=== PATIENT | female | born 1980 | race Caucasian/White ===

== ENCOUNTER → 2021-09-30 | Outpatient (CLI) | payer OTHER ==
--- NOTE | 2021-09-30 16:46 | P.SLEEP ---
History of Present Illness H&P Date: 09/30/21 Chief Complaint: hypersomnia This is a 41-year-old female patient who has been diagnosed with obstructive sleep apnea back in 2019 to the sleep center to [facility]. The patient failed to comply and the patient did not show adequate response and compliance and based on that she had to return her machine back. Over the past 3 years, conditions got worse. She is snoring and she has been noted with breathing at night and she is excessively tired and sleepy during the day. She is going to bed at around 9 PM waking of 5:30 AM in the morning. The patient has gained around 15 pounds over the past 1 year. She is off all sleep was driving. No restlessness lower extremity speech is sleeps on her stomach and the site. No nighttime chest pain or shortness of breath. She is occasionally grinding her teeth. Denies waking up choking or gasping for air. Note that her original polysomnogram was done at [facility] and she is not aware on the disease severity and she is also aware on the exact pressure setting that she was offered at the time of her treatment. She did not have a follow-up with a sleep physician. Review of Systems Constitutional: Reports daytime sleepiness, Reports fatigue, Reports weight gain Eyes: denies as per HPI, denies blurred vision, denies bulging eye, denies decreased vision, denies diplopia, denies discharge, denies dry eye, denies irritation, denies itching, denies pain, denies photophobia, denies loss of peripheral vision, denies loss of vision, denies tunnel vision/blind spots Ears: deny: decreased hearing, ear discharge, earache, tinnitus Ears, nose, mouth and throat: Reports as per HPI Breasts: absent: as per HPI, change in shape, gynecomastia, masses, nipple discharge, pain, skin changes, swelling Cardiovascular: Reports as per HPI Respiratory: Reports sleep apnea, Reports snoring Gastrointestinal: Reports as per HPI Genitourinary: Reports as per HPI Menstruation: Reports as per HPI Musculoskeletal: Reports as per HPI Musculoskeletal: absent: ankle pain, ankle stiffness, ankle swelling Integumentary: Reports as per HPI Neurological: Reports as per HPI Psychiatric: Reports as per HPI Endocrine: Reports as per HPI, Reports fatigue Hematologic/Lymphatic: Reports as per HPI Allergic/Immunologic: Reports as per HPI Past Medical History Past Medical History: Diabetes Mellitus, Hypertension, Sleep Apnea/CPAP/BIPAP, Thyroid Disorder (goiter) Additional Past Medical History / Comment(s): shingles, cataracts Past Surgical History: Ear Surgery Medications and Allergies Home Medications and Allergies Comment(s): Medication includes Xanax 0.5 mg twice a day Zoloft 100 mg by mouth daily Norvasc 10 mg by mouth daily Lipitor 10 mg by mouth daily Omeprazole 20 mg by mouth daily Hydrochlorothiazide 25 mg by mouth daily Claritin 10 mg by mouth daily Metformin 500 mg twice a day Vitamin C 100 mg by mouth daily Physical Exam BP is 125/78, pulse is 91, respirations 16, temperature 97.6, weight is 182, height is 5 feet and 3 inches, [place] scores a 17, body mass index is 31.1 The patient appeared well nourished and normally developed. Vital signs as documented. Head exam is unremarkable. No scleral icterus or corneal arcus noted. Neck is without jugular venous distension, thyromegaly, or carotid bruits. Carotid upstrokes are brisk bilaterally. Lungs are clear to auscultation and percussion. Cardiac exam reveals the PMI to be normally sized and situated. Rhythm is regular. First and second heart sounds normal. No murmurs, rubs or gallops. Abdominal exam reveals normal bowel sounds, no masses, no organomegaly and no aortic enlargement. Extremities are nonedematous and both femoral and pedal pulses are normal.Examination of the skin revealed no evidence of significant rashes, suspicious appearing nevi or other concerning lesions.Neurologically, the patient is awake and alert and the patient does not have any focal neurological deficit. Cranial nerves are essentially intact. Assessment and Plan Plan: Obstructive sleep apnea, diagnosed in 2019, failed treatment and the patient is coming in with ongoing symptoms of hypersomnia and sleepiness along with weight gain and worsening of her overall symptomatology. Requesting a reevaluation. Original evaluation was done to [facility] Chronic hypersomnia and for score of 17 Obesity BMI of 31.5 Chronic anxiety Hypertension Diabetes mellitus Shingles Cataracts Plan Proceed with a screening polysomnogram and treat accordingly Encourage weight loss Implement good sleep hygiene measures We'll continue to follow Sleep Note - Sleep Note Sleep Note: Temperature: Pulse Rate: Respiratory Rate: Blood Pressure: SpO2: Height: Weight: BMI: Neck Circumference:
== END ==
LOC: SLEEP 15:53
PROVIDERS: ATTEND Internal Medicine Critical Care Medicine
DX: G47.33 Obstructive sleep apnea (adult) (pediatric) (principal); E66.9 Obesity, unspecified; Z68.31 Body mass index [BMI] 31.0-31.9, adult; F41.9 Anxiety disorder, unspecified; E11.9 Type 2 diabetes mellitus without complications; B02.9 Zoster without complications; H26.9 Unspecified cataract; I10 Essential (primary) hypertension; Z79.899 Other long term (current) drug therapy; Z79.84 Long term (current) use of oral hypoglycemic drugs
CPT/HCPCS: 99202